=== PATIENT | female | born 1965 | race Caucasian/White ===

== ENCOUNTER 2018-02-28 19:58 | Emergency (ER) | payer SELFPAY ==
[~2018-02-28] VITALS: Ht 157.5 cm; Wt 62.3 kg
[2018-02-28 20:05] VITALS: TEMP 36.7; Ht 157.5 cm; Wt 62.3 kg
--- NOTE | 2018-02-28 20:41 | DIAGNOSTIC IMAGING REPORT ---
CHEST ONE VIEW PORTABLE CLINICAL HISTORY: Atypical chest pain COMPARISON STUDY: No previous studies for comparison. FINDINGS: The cardiac and mediastinal contours are normal. There is no evidence of focal pulmonary consolidation. There is no evidence of failure. No pleural effusions are visualized.[ IMPRESSION: No active disease in the chest. Electronically signed by: Raheel Shepard M.D. 02/28/2018 8:39 PM Dictated Date/Time: 02/28/2018 8:39 PM
[2018-02-28 20:44] LABS: BASO % 0.4 %; BASO ABS # 0.04 K/uL (0-0.2); EOS % 3.2 %; EOS ABS # 0.29 K/uL (0-0.5); HEMATOCRIT 38.3 % (37-47); IG# 0.03 K/uL (0.00-0.02); LYMPH % 23.9 %; LYMPH ABS # 2.16 K/uL (1.2-3.4); MEAN CELL VOLUME 92.5 fL (80-100); MEAN CORPUSCULAR HEMOGLOBIN 31.4 pg (25-34); MEAN CORPUSCULAR HGB CONC 33.9 g/dl (32-36); MEAN PLATELET VOLUME 9.5 fL (7.4-10.4); MONO % 6.8 %; MONO ABS # 0.61 K/uL (0.11-0.59); NEUT % 65.4 %; PLATELET COUNT 356 K/uL (130-400); RED CELL DISTRIBUTION WIDTH CV 12.6 % (11.5-14.5); RED CELL DISTRIBUTION WIDTH SD 42.8 fL (36.4-46.3); WHITE BLOOD COUNT 9.03 K/uL (4.8-10.8)
[2018-02-28] MEDS ORDERED: NAPR1TAB9 PO (21:00)
[2018-02-28 21:12] LABS: ALBUMIN 3.9 gm/dl (3.4-5.0); ALKALINE PHOSPHATASE 97 U/L (45-117); ALT/SGPT 21 U/L (12-78); AST/SGOT 18 U/L (15-37); BLOOD UREA NITROGEN 14 mg/dl (7-18); CALCIUM 8.8 mg/dl (8.5-10.1); CARBON DIOXIDE 26 mmol/L (21-32); CKMB < 1.0 ng/ml (0.5-3.6); CREATININE 0.79 mg/dl (0.60-1.20); GLUCOSE 90 mg/dl (70-99); LIPASE 158 U/L (73-393); POTASSIUM 3.8 mmol/L (3.5-5.1); SODIUM 136 mmol/L (136-145); TOTAL PROTEIN 7.7 gm/dl (6.4-8.2)
[2018-02-28 22:58] VITALS: BP 120/69; PULSE 72; O2SAT 98
--- NOTE | 2018-03-01 01:31 | EMERGENCY ROOM VISIT NOTE ---
History Report prepared by Charmaine: Lynnette Faria Under the Supervision of: Dr. Bean Hendricks M.D. First contact with patient: 20:19 Chief Complaint: CARDIAC ASSESSMENT Stated Complaint: PAIN IN LEFT ARM, LIGHT HEADED, NAUSEA History of Present Illness The patient is a 52 year old female who presents to the Emergency Room with complaints of constant chest pain that started this morning. The patient reports she was awoken from her sleep by pain in the middle of her chest that radiates all the way down her left arm. The notes that her pain worsens when she walks. The patient states that her pain was an 8/10 this morning, but that it decreased over the course of the day. She noted that it began to worsen again prior to arrival and she currently rates it a 5/10. The patient states she has not taken any medication to alleviate the pain. The patient also complains of feeling near syncope and swelling in her right leg. She reports she had similar symptoms a few weeks ago but the pain was not as bad as it is now. Per significant other, the patient has been feeling more stressed lately, has not been sleeping well, and has spent more time on her feet secondary to her job. The patient denies any recent surgery or travel, and she states that she does not smoke. She also notes that her father is diabetic. Pt denies LOC, headache, fevers, chills, diaphoresis, visual changes, neck pain, breathing difficulties, nausea, vomiting, personal or family history of PE or dissection, abdominal pain, back pain, melena, hematochezia, urinary symptoms, numbness, weakness, lymphadenopathy, rash, or other complaints. Source of History: patient, spouse/significant other Onset: this morning Position: chest Symptom Intensity: 5/10 Quality: other (pain) Timing: worsening Modifying Factors (Relieving): other (walking) Note: additional symptoms: near syncope, swelling in right leg Review of Systems See HPI for pertinent positives and negatives. A total of ten systems were reviewed and were otherwise negative. Past Medical & Surgical Medical Problems: (1) No known problems Family History Diabetes mellitus in father Social History Smoking Status: Never Smoker Marital Status: single (Repeat EKG: Normal sinus, 65 beats per minute, no ST elevation, no ST depression, no PACs, no PVCs) Current/Historical Medications Scheduled PRN Naproxen (Aleve), 220 MG PO UD PRN for Pain Allergies Coded Allergies: No Known Allergies (Unverified , 02/28/18) Physical Exam Vital Signs Date Time Temp Pulse Resp B/P (MAP) Pulse Ox O2 Delivery O2 Flow Rate FiO2 02/28/18 22:58 72 16 120/69 98 Room Air 02/28/18 22:00 66 16 119/71 97 Room Air 02/28/18 21:41 Room Air 02/28/18 21:05 75 16 115/82 96 Room Air 02/28/18 20:54 74 02/28/18 20:27 Room Air 02/28/18 20:05 36.7 74 18 128/77 100 Room Air Physical Exam GENERAL: Awake, alert, mildly uncomfortable-appearing, in no distress HENT: Normocephalic, atraumatic. Oropharynx unremarkable. EYES: Normal conjunctiva. Sclera non-icteric. NECK: Supple. No nuchal rigidity. FROM. No masses. RESPIRATORY: Clear to auscultation. No wheezes. No rales. Normal respiratory effort. CARDIAC: Normal rate. Normal rhythm. No murmurs. No rubs. Extremities warm and well perfused. Pulses equal. No JVD. GI: Soft, non-distended. No tenderness to palpation. No rebound or guarding. No masses. RECTAL: Deferred. MUSCULOSKELETAL: Atraumatic. Left chest wall tenderness. The back is symmetrical on inspection without obvious abnormality. There is no CVA tenderness to palpation. No joint edema. LOWER EXTREMITIES: Calves are equal size bilaterally and non-tender. No edema. No discoloration. NEURO: Normal sensorium. No sensory or motor deficits noted. SKIN: No rash or jaundice noted. Medical Decision & Procedures ER Provider Diagnostic Interpretation: Radiology results as stated below per my review and radiologist interpretation: CHEST ONE VIEW PORTABLE CLINICAL HISTORY: Atypical chest pain COMPARISON STUDY: No previous studies for comparison. FINDINGS: The cardiac and mediastinal contours are normal. There is no evidence of focal pulmonary consolidation. There is no evidence of failure. No pleural effusions are visualized.[ IMPRESSION: No active disease in the chest. Electronically signed by: Raheel Shepard M.D. 02/28/2018 8:39 PM Dictated Date/Time: 02/28/2018 8:39 PM Laboratory Results 02/28/18 20:20 Red Blood Count 4.14, Mean Corpuscular Volume 92.5, Mean Corpuscular Hemoglobin 31.4, Mean Corpuscular Hemoglobin Concent 33.9, Mean Platelet Volume 9.5, Neutrophils (%) (Auto) 65.4, Lymphocytes (%) (Auto) 23.9, Monocytes (%) (Auto) 6.8, Eosinophils (%) (Auto) 3.2, Basophils (%) (Auto) 0.4, Neutrophils # (Auto) 5.90, Lymphocytes # (Auto) 2.16, Monocytes # (Auto) 0.61, Eosinophils # (Auto) 0.29, Basophils # (Auto) 0.04 02/28/18 20:20 Test 02/28/18 20:20 02/28/18 22:10 White Blood Count 9.03 K/uL (4.8-10.8) Red Blood Count 4.14 M/uL (4.2-5.4) Hemoglobin 13.0 g/dL (12.0-16.0) Hematocrit 38.3 % (37-47) Mean Corpuscular Volume 92.5 fL (80-100) Mean Corpuscular Hemoglobin 31.4 pg (25-34) Mean Corpuscular Hemoglobin Concent 33.9 g/dl (32-36) Platelet Count 356 K/uL (130-400) Mean Platelet Volume 9.5 fL (7.4-10.4) Neutrophils (%) (Auto) 65.4 % Lymphocytes (%) (Auto) 23.9 % Monocytes (%) (Auto) 6.8 % Eosinophils (%) (Auto) 3.2 % Basophils (%) (Auto) 0.4 % Neutrophils # (Auto) 5.90 K/uL (1.4-6.5) Lymphocytes # (Auto) 2.16 K/uL (1.2-3.4) Monocytes # (Auto) 0.61 K/uL (0.11-0.59) Eosinophils # (Auto) 0.29 K/uL (0-0.5) Basophils # (Auto) 0.04 K/uL (0-0.2) RDW Standard Deviation 42.8 fL (36.4-46.3) RDW Coefficient of Variation 12.6 % (11.5-14.5) Immature Granulocyte % (Auto) 0.3 % Immature Granulocyte # (Auto) 0.03 K/uL (0.00-0.02) D-Dimer 220 ug/L FEU (0-500) Anion Gap 6.0 mmol/L (3-11) Est Creatinine Clear Calc Drug Dose 74.0 ml/min Estimated GFR () 101.2 Estimated GFR (Non- 87.3 BUN/Creatinine Ratio 18.3 (10-20) Calcium Level 8.8 mg/dl (8.5-10.1) Total Bilirubin 0.2 mg/dl (0.2-1) Direct Bilirubin < 0.1 mg/dl (0-0.2) Aspartate Amino Transf (AST/SGOT) 18 U/L (15-37) Alanine Aminotransferase (ALT/SGPT) 21 U/L (12-78) Alkaline Phosphatase 97 U/L (45-117) Total Creatine Kinase 80 U/L (26-192) Creatine Kinase MB < 1.0 ng/ml (0.5-3.6) Creatine Kinase MB Ratio (0-3.0) Total Protein 7.7 gm/dl (6.4-8.2) Albumin 3.9 gm/dl (3.4-5.0) Lipase 158 U/L (73-393) Troponin I < 0.015 ng/ml (0-0.045) Laboratory results reviewed by me ECG Per My Interpretation Indication: chest pain Rate (beats per minute): 69 Rhythm: normal sinus Findings: other (no ST elevation, no ST depression, no PACs, no PVCs) Comparison ECG Date: 02/28/18, repeat EKG Change: no significant change (Repeat EKG: Normal sinus, 65 beats per minute, no ST elevation, no ST depression, no PACs, no PVCs) ED Course 2020: The patient was evaluated in room C7. A complete history and physical exam was performed. 2205: I checked on the patient and updated her on her results. The patient will be getting a repeat EKG and repeat Troponin. 2308: I reevaluated the patient. Discussed results and discharge instructions: She verbalized understanding and agreement. The patient is ready for discharge. Medical Decision Prior records/ancillary studies reviewed. Triage Nursing notes reviewed and agree them. Additional history obtained from the patient's significant other The patient's history was concerning for chest pain. Differential diagnosis: Etiologies such as muscular skeletal, cardiac ischemia, aortic dissection, pulmonary embolism, pneumonia, pneumothorax, infections, pericarditis, myocarditis, esophageal rupture, gastrointestinal, as well as others were entertained. Physical examination: As above. Tender left chest wall. ER treatment provided: Patient declined analgesia On reassessment the patient felt better. Diagnostic interpretation by me: The electrocardiogram was negative for pathologic change 2. The labs revealed an unremarkable CBC and chemistry panel. LFTs lipase negative. Cardiac markers negative. Repeat troponin negative. No delta. A d-dimer was performed and it was negative. Based on Wells criteria and a negative dimer no further imaging for PE was performed. Imaging studies: Chest x-ray as above The patient had an episode of chest discomfort that lasted all day. She had negative cardiac markers as well as an ECG 2. D-dimer was negative. She declined analgesia. With reassurance she was feeling much better. She is pleased that her excellent test results. She has been under a lot of stress lately. She has been doing a lot at work. She did have a tender chest wall. I did discuss the possibility of a musculoskeletal source such as costochondritis with her and her significant other. She will rest. She will take it easy. If she worsens in any way she will be back to the ER for reevaluation. I gave my usual and customary discussion regarding this issue. By the evaluation outlined above other emergent etiologies such as those listed in the differential, as well as others, were deemed relatively unlikely. The patient was educated about the findings as listed above. All questions were answered and the patient was pleased with the treatment. Return instructions were outlined and the patient was discharged in stable condition. The patient was referred to her PCP for follow-up for a recheck of the current condition. Medication Reconcilliation Current Medication List: was personally reviewed by me Blood Pressure Screening Patient's blood pressure: Normal blood pressure Blood pressure disposition: Did not require urgent referral Impression Primary Impression: Left sided chest pain Scribe Attestation The scribe's documentation has been prepared under my direction and personally reviewed by me in its entirety. I confirm that the note above accurately reflects all work, treatment, procedures, and medical decision making performed by me. Departure Information Dispostion Home / Self-Care Referrals No Doctor, Assigned (PCP) Forms IMPORTANT VISIT INFORMATION Patient Instructions [facility]
== END 2018-02-28 23:10 | disposition home or self-care (01) ==
LOC: C.EDB 20:00 → C.EDC 23:10
DX: R07.89 Other chest pain (principal); R55 Syncope and collapse; M79.89 Other specified soft tissue disorders